=== PATIENT | male | born 1965 | race Caucasian/White ===

== ENCOUNTER → 2018-05-20 | Outpatient (CLI) | payer OTHER ==
--- NOTE | 2018-05-20 16:37 | PCVCIMAG ---
APPROVED REPORT Study performed: 05/20/2018 14:59:27 Exam: Stress Echocardiogram Indication: Hyperlipidemia,elev cor Ca+ score Patient Location: Echo lab Stress Nurse: Deya Santos RN Room #: 2 Status: routine Ht: 5 ft 10 in HR: 76 bpm BP: 134/86 mmHg Rhythm: NSR Medical History Medical History: Hyperlipidemia Cardiac Risk Factors: Hyperlipidemia, FHX of CAD Previous Cardiac Procedures: none Pretest Chest Pain Characteristics: No chest pain Exercise History: Physically active Procedure The patient underwent an Exercise Stress Test using the Sukhwinder Protocol. Blood pressure, heart rate, and EKG were monitored. An Echocardiogram was performed by environmental laboratory technician in four stages in quad fashion. At peak stress, four selected images were obtained and placed side by side with resting images for comparison. Stress Test Details Stress Test: Exercise stress testing was performed using a Sukhwinder protocol. HR Resting HR: 88 bpmMax Heart Rate (APMHR): 167 bpm Max HR Achieved: 184 bpmTarget HR (85% APMHR): 141 bpm % of APMHR: 110 Recovery HR: 106 bpm HR response to stress: Normal HR response to stress BP Resting BP: 134/86 mmHg Max BP: 196/88 mmHg Recovery BP: 152/72 mmHg BP response to stress: Normal blood pressure response to stress. ECG Resting ECG: Sinus Rhythm Stress ECG: Sinus Rhythm ST Change: Non-ischemic Arrhythmia: Rare PVCs Recovery ECG: Sinus Rhythm Recovery ST Change: Non-ischemic Recovery Arrhythmia: None Clinical Reason for Termination: Maximal effort Stress Symptoms: none Exercise duration: 12 min 00 sec Highest Stage Achieved: Stage 5: 5.0 mph at 18% grade. Exercise capacity: 13.4 METs Overall Exercise Capacity for Age: Excellent Scale: Active Angina Score: None No complications. Stress ECG Conclusion The patient exercised according to the SUKHWINDER protocol for 12:00 mins; achieving a work level of 13.4 METS. The resting heart rate of 76 bpm penny to a maximum heart rate of 187 bpm. This value represent 111% of the maximal, age-predicted heart rate. The resting blood pressure of 134/86 mmHg, penny to a maximum blood pressure of 196/88 mmHg. The exercise test was stopped due to fatigue. Pre-Stress Echo The resting Echocardiogram showed normal left ventricular contractility with an estimated Ejection Fraction of about 55-60%. Normal wall motion in all segments on baseline images. Post-Stress Echo The stress Echocardiogram showed normal left ventricular contractility with an estimated Ejection Fraction of about 65-70%. Normal augmentation of wall motion in all segments on post stress images. Clinical No clinical or ECG evidence for ischemia. Conclusion Clinical Response: Non-ischemic Exercise Capacity: Superior Stress ECG Response: Non-ischemic Stress Echo Images: Non-ischemic No clinical, EKG or echocardiographic evidence for ischemia. No echocardiographic evidence for exercise induced ischemia. Normal stress echocardiogram with maximal exercise stress. <Conclusion> No clinical, EKG or echocardiographic evidence for ischemia. No echocardiographic evidence for exercise induced ischemia. Normal stress echocardiogram with maximal exercise stress.
== END | disposition home or self-care (01) ==
LOC: PCVCIMAG 14:46
PROVIDERS: ATTEND Internal Medicine Cardiovascular Disease
DX: R93.1 Abnormal findings on diagnostic imaging of heart and coronary circulation (principal); R06.02 Shortness of breath; E78.5 Hyperlipidemia, unspecified
CPT/HCPCS: 93325; 93351